=== PATIENT | male | born 1990 | race Caucasian/White ===

== ENCOUNTER 2016-12-02 15:48 | Inpatient (IN) | payer MEDICAID ==
[~2016-12-02] VITALS: Ht 180.3 cm; Wt 93.2 kg
[2016-12-02] MEDS ORDERED: PROMETHAZINE HCL 25 MG TABLET PO PRN (16:30)
[2016-12-02] MEDS ORDERED: HALOPERIDOL LACTATE 5 MG/ML VIAL IM ONE (16:30)
[2016-12-02] MEDS ORDERED: ACETAMINOPHEN 325 MG TABLET PO PRN (16:30)
[2016-12-02] MEDS ORDERED: MAG HYDROX/AL HYDROX/SIMETH ES 30 ML SUSPENSION UDCUP PO PRN (16:30)
[2016-12-02] MEDS ORDERED: LORazepam 2 MG/ML VIAL IM ONE (16:30)
[2016-12-02] MEDS ORDERED: HydrOXYzine PAMOATE 50 MG CAPSULE PO PRN (16:30)
[2016-12-02] MEDS ORDERED: LOPERAMIDE HCL 2 MG CAPSULE PO PRN (16:30)
[2016-12-02] MEDS ORDERED: ZOLPIDEM TARTRATE 10 MG TABLET PO PRN (16:30)
[2016-12-02] MEDS ORDERED: GuaiFENesin/D-METHORPHAN [SUGAR-FREE] 200-20MG/10 ML SYRUP UDCUP PO PRN (16:30)
[2016-12-02] MEDS ORDERED: TUBERCULIN, PURIFIED PROTEIN DERIVATIVE 5 TU/0.1 ML SYG ID ONE (16:30)
[2016-12-02] MEDS ORDERED: DiphenhydrAMINE HCL 50 MG/ML VIAL IM ONE (16:30)
[2016-12-02] MEDS ORDERED: MAGNESIUM HYDROXIDE SUSPENSION 30 ML UDCUP PO PRN (16:30)
[2016-12-02 16:35] VITALS: BP 121/83
[2016-12-02 16:54] VITALS: BP 121/83
[2016-12-02 17:05] VITALS: BP 127/80
[2016-12-02] MEDS ORDERED: QUET100T PO (17:08)
[2016-12-02] MEDS ORDERED: ARIP10TA14 PO (17:08)
[2016-12-02] MEDS: THIAMINE HCL 100 MG TABLET PO SCH (17:50)
[2016-12-02] MEDS ORDERED: LORazepam 2 MG/ML VIAL ONE (18:00)
[2016-12-02] MEDS ORDERED: HALOPERIDOL LACTATE 5 MG/ML VIAL ONE (18:00)
[2016-12-02] MEDS ORDERED: DiphenhydrAMINE HCL 50 MG/ML VIAL ONE (18:00)
[2016-12-02] MEDS: OLANZapine 5 MG RAPDIS TABLET PO SCH (20:53)
[2016-12-02] MEDS: DIVALPROEX SODIUM 500 MG DR TABLET PO SCH (20:55)
[2016-12-03 07:14] VITALS: BP 110/60
[2016-12-03] MEDS: THIAMINE HCL 100 MG TABLET PO SCH ×2 (08:12→16:27)
[2016-12-03] MEDS: MULTIVITAMINS WITH MINERALS, THERAPEUTIC TABLET PO SCH (08:12)
[2016-12-03] MEDS: LORazepam 2 MG TABLET PO PRN ×2 (08:12→16:27)
[2016-12-03] MEDS: OLANZapine 5 MG RAPDIS TABLET PO PRN ×2 (08:12→16:27)
[2016-12-03] MEDS: NALTREXONE HCL 50 MG TABLET PO SCH (08:12)
[2016-12-03] MEDS: FOLIC ACID 1 MG TABLET PO SCH (08:12)
[2016-12-03 08:27] LABS: BASOPHILS % (AUTO) 0.8 % (0.0-2.0); EOSINOPHILS % (AUTO) 1.3 % (1.0-6.0); HEMATOCRIT 46.1 % (41-53); HEMOGLOBIN 14.7 g/dL (13.5-17.5); LYMPHOCYTES # (AUTO) 2.7 K/uL (1.0-4.8); LYMPHOCYTES % (AUTO) 42.6 % (22.0-44.0); MEAN CORPUSCULAR HEMOGLOBIN 30.1 pg (26.0-34.0); MEAN CORPUSCULAR VOLUME 94 fL (80-100); MONOCYTES # (AUTO) 0.5 K/uL (0.1-1.0); MONOCYTES % (AUTO) 7.4 % (2.0-9.0); NEUTROPHILS % (AUTO) 47.9 % (40.0-70.0); PLATELET COUNT (AUTO) 206 K/uL (150-450); RED CELL DISTRIBUTION WIDTH 13.4 % (11.5-14.5); WHITE BLOOD COUNT (AUTO) 6.3 K/uL (4.5-11.0)
[2016-12-03 08:37] LABS: HEMOGLOBIN A1C 5.8 % (4.5-6.2)
[2016-12-03 09:04] VITALS: BP 106/67
[2016-12-03 09:28] LABS: ALANINE AMINOTRANSFERASE 43 U/L (12-78); ALBUMIN 3.7 g/dL (3.4-5.0); ANION GAP 8 mmol/L (8-16); ASPARTATE AMINOTRANSFERASE 20 U/L (15-37); BILIRUBIN,TOTAL 0.5 mg/dL (0.1-1.0); CALCIUM, TOTAL 8.9 mg/dL (8.8-10.5); CARBON DIOXIDE 27 mmol/L (22-29); CHLORIDE 105 mmol/L (98-107); CHOL/HDL RATIO 4.8 (4.2-7.3); CREATININE 1.03 mg/dL (0.60-1.30); GLOMERULAR FILTR. RATE CALC > 60 mL/min (>60); POTASSIUM 4.3 mmol/L (3.5-5.1); SODIUM SERUM 140 mmol/L (136-145); THYROID STIMULATING HORMONE 1.64 uIU/mL (0.36-3.74); TOTAL PROTEIN, SERUM 7.2 g/dL (6.4-8.2); UREA NITROGEN, BLOOD 14 mg/dL (7-18)
[2016-12-03 16:06] VITALS: BP 131/77
[2016-12-03] MEDS: DIVALPROEX SODIUM 500 MG DR TABLET PO SCH (20:10)
[2016-12-03] MEDS: OLANZapine 5 MG RAPDIS TABLET PO SCH (20:10)
[2016-12-04 07:13] VITALS: BP 133/80
[2016-12-04 08:15] VITALS: BP 127/77
[2016-12-04] MEDS: LORazepam 2 MG TABLET PO PRN ×2 (09:38→16:32)
[2016-12-04] MEDS: THIAMINE HCL 100 MG TABLET PO SCH ×2 (09:38→16:32)
[2016-12-04] MEDS: OLANZapine 5 MG RAPDIS TABLET PO PRN ×2 (09:38→16:32)
[2016-12-04] MEDS: MULTIVITAMINS WITH MINERALS, THERAPEUTIC TABLET PO SCH (09:38)
[2016-12-04] MEDS: FOLIC ACID 1 MG TABLET PO SCH (09:38)
[2016-12-04] MEDS: NALTREXONE HCL 50 MG TABLET PO SCH (09:38)
[2016-12-04 16:00] VITALS: BP 124/73
[2016-12-04] MEDS ORDERED: OLAN5Z PO (17:50)
[2016-12-04] MEDS ORDERED: DIVA500T35 PO (17:50)
[2016-12-04] MEDS ORDERED: MULT-1239 PO (17:50)
[2016-12-04] MEDS: DIVALPROEX SODIUM 500 MG DR TABLET PO SCH (20:48)
[2016-12-04] MEDS ORDERED: OLANZapine 10 MG RAPDIS TABLET PO SCH (21:00)
[2016-12-05 06:20] VITALS: BP 128/81
[2016-12-05] MEDS ORDERED: DIVA500T35 PO (07:58)
[2016-12-05] MEDS ORDERED: OLAN10TA6 PO (07:58)
[2016-12-05 08:34] VITALS: BP 124/67
[2016-12-05] MEDS: MULTIVITAMINS WITH MINERALS, THERAPEUTIC TABLET PO SCH (08:44)
[2016-12-05] MEDS: THIAMINE HCL 100 MG TABLET PO SCH (08:44)
[2016-12-05] MEDS: FOLIC ACID 1 MG TABLET PO SCH (08:45)
[2016-12-05] MEDS: NALTREXONE HCL 50 MG TABLET PO SCH (08:45)
== END 2016-12-05 13:41 | disposition home or self-care (01) | DRG 750 ==
LOC: B3A 16:53
PROVIDERS: ADMIT Psychiatry & Neurology Psychiatry; ATTEND Psychiatry & Neurology Psychiatry
PROC: GZHZZZZ Group Psychotherapy (ICD-10-PCS; principal; 2016-12-02)
PROC: GZ51ZZZ Individual Psychotherapy, Behavioral (ICD-10-PCS; 2016-12-02)
DX: F20.0 Paranoid schizophrenia (principal); G93.41 Metabolic encephalopathy; J44.9 Chronic obstructive pulmonary disease, unspecified; Z91.14 Patient's other noncompliance with medication regimen; F19.10 Other psychoactive substance abuse, uncomplicated; F17.200 Nicotine dependence, unspecified, uncomplicated
CPT/HCPCS: 83036; 84439; 84443; 86592; 87081; J1200; J1630; J2060

== ENCOUNTER 2020-12-14 15:01 | Inpatient (IN) | payer MEDICAID ==
[~2020-12-14] VITALS: Ht 180.3 cm; Wt 122.5 kg
[~2020-12-14 15:01] MED LIST: DIVA-112 PO; MULT-1239 PO; OLAN10TA26 PO; OLAN5TAB94 PO
[2020-12-14] MEDS ORDERED: ZOLPIDEM TARTRATE 10 MG TABLET PO PRN (18:15)
[2020-12-14] MEDS ORDERED: HALOPERIDOL 5 MG TABLET PO PRN (18:15)
[2020-12-14] MEDS ORDERED: LORazepam 2 MG TABLET PO PRN (18:15)
[2020-12-14 18:18] LABS: COVID AG,FIA SOURCE NASAL SWAB
[2020-12-14 20:49] VITALS: BP 125/77
[2020-12-14] MEDS: DIVALPROEX SODIUM 500 MG DR TABLET PO SCH (21:56)
[2020-12-14] MEDS: OLANZapine 10 MG RAPDIS TABLET PO SCH (21:56)
[2020-12-15 05:17] VITALS: BP 122/71
[2020-12-15] MEDS ORDERED: ALBUTEROL SULFATE HFA 90 MCG/PUFF 8 GM INHALER IH PRN (07:00)
[2020-12-15] MEDS ORDERED: MAGNESIUM HYDROXIDE SUSPENSION 30 ML UDCUP PO PRN (07:00)
[2020-12-15] MEDS ORDERED: IBUPROFEN 600 MG TABLET PO PRN (07:00)
[2020-12-15] MEDS ORDERED: DOCUSATE SODIUM 100 MG CAPSULE PO PRN (07:00)
[2020-12-15] MEDS ORDERED: BENZOCAINE/MENTHOL LOZENGE PO PRN (07:00)
[2020-12-15] MEDS ORDERED: BACITRACIN 28 GM OINTMENT TP PRN (07:00)
[2020-12-15] MEDS ORDERED: MAG HYDROX/AL HYDROX/SIMETH ES 30 ML SUSPENSION UDCUP PO PRN (07:00)
[2020-12-15] MEDS ORDERED: CloNIDine HCL 0.1 MG TABLET PO PRN (07:00)
[2020-12-15] MEDS ORDERED: PETROLATUM,WHITE 28 GM JELLY TP PRN (07:00)
[2020-12-15] MEDS ORDERED: OMEPRAZOLE 20 MG CAPSULE PO PRN (07:00)
[2020-12-15] MEDS ORDERED: ACETAMINOPHEN 325 MG TABLET PO PRN (07:00)
[2020-12-15] MEDS ORDERED: ONDANSETRON HCL 4 MG TABLET PO PRN (07:00)
[2020-12-15] MEDS ORDERED: LOPERAMIDE HCL 2 MG CAPSULE PO PRN (07:00)
[2020-12-15 12:30] VITALS: BP 124/84
[2020-12-15 17:04] VITALS: BP 121/80
[2020-12-15] MEDS: DIVALPROEX SODIUM 500 MG DR TABLET PO SCH (20:53)
[2020-12-15] MEDS: OLANZapine 10 MG RAPDIS TABLET PO SCH (20:54)
[2020-12-16 06:38] VITALS: BP 118/78
[2020-12-16 10:00] VITALS: BP 117/69
[2020-12-16] MEDS ORDERED: OLAN5TAB94 PO (11:12)
== END 2020-12-16 13:42 | disposition home or self-care (01) | DRG 750 ==
LOC: B3A 19:55
PROVIDERS: ADMIT Psychiatry & Neurology Psychiatry; ATTEND Psychiatry & Neurology Psychiatry
DX: F20.9 Schizophrenia, unspecified (principal); Z59.0 Homelessness; E78.5 Hyperlipidemia, unspecified; F17.200 Nicotine dependence, unspecified, uncomplicated; Z20.822 Contact with and (suspected) exposure to COVID-19
CPT/HCPCS: Z7610